=== PATIENT | male | born 1965 | race Caucasian/White ===

== ENCOUNTER 2020-11-04 16:25 | Emergency (ER) | payer SELFPAY ==
[~2020-11-04] VITALS: Ht 172.7 cm; Wt 80.3 kg
[2020-11-04 16:44] VITALS: BP 136/74
--- NOTE | 2020-11-04 16:48 | NUR ---
PT SENT TO LOBBY
[2020-11-04 17:47] LABS: BASOPHILS # (AUTO) 0.1 K/uL (0.00-0.22); BASOPHILS % (AUTO) 0.7 % (0.0-2.0); EOSINOPHILS # (AUTO) 0.5 K/uL (0-0.4); EOSINOPHILS % (AUTO) 5.9 % (0.0-4.0); HEMATOCRIT 44.1 % (36-52); HEMOGLOBIN 14.8 g/dL (12.0-18.0); LYMPHOCYTES # (AUTO) 3.1 K/uL (2.0-11.5); LYMPHOCYTES % (AUTO) 38.8 % (20.5-51.1); MEAN CORPUSCULAR HEMOGLOBIN 31 pg (27-31); MEAN CORPUSCULAR HGB CONC 34 g/dL (33-37); MEAN CORPUSCULAR VOLUME 92.7 fL (80-94); MONOCYTES # (AUTO) 0.6 K/uL (0.8-1.0); MONOCYTES % (AUTO) 7.4 % (1.7-9.3); NEUTROPHILS # (AUTO) 3.8 K/uL (1.8-7.7); NEUTROPHILS % (AUTO) 47.2 % (42.2-75.2); PLATELET COUNT (AUTO) 93 K/uL (140-450); RED BLOOD CELL COUNT(AUTO) 4.76 MIL/uL (4.20-6.10); RED CELL DISTRIBUTION WIDTH 13.5 % (11.6-13.7); WHITE BLOOD COUNT (AUTO) 8.1 K/uL (4.8-10.8)
[2020-11-04 18:08] LABS: ALBUMIN 4.2 g/dL (3.4-5.0); ANION GAP 10.5 (8-16); CARBON DIOXIDE 27.6 mmol/L (21-32); CREATININE 1.2 mg/dL (0.6-1.3); POTASSIUM 4.1 mmol/L (3.5-5.1); TOTAL BILIRUBIN 0.9 mg/dL (0.0-1.0)
--- NOTE | 2020-11-04 18:17 | NUR ---
PT AMBULATED TO CHAIR C
--- NOTE | 2020-11-04 18:25 | NUR ---
54 Y/O MALE BIB SELF WITH C/O LEFT FLANK PAIN SINCE THIS MORNING. REPORTS DYSURIA, FREQUENCY AND HEMATURIA TODAY. REPORTS TAKING NAPROSYN THIS MORNING WITH NO RELIEF. DENIES CP, SOB, FEVER OR CHILLS. DENIES N/V. PT A/O X4 WITH EVEN AND UNLABORED RESPIRATIONS. MEDHX: DENIES ALLERGIES: DENIES
[2020-11-04] MEDS: NACL 0.9% 1,000 ML IV ONE (18:26)
[2020-11-04] MEDS ORDERED: MORPHINE SULFATE 4 MG/ML SYR ONE (18:27)
[2020-11-04] MEDS: MORPHINE SULFATE 4 MG/ML SYR IVP ONE ×2 (18:33→19:37)
[2020-11-04 19:03] LABS: APPEARANCE,URINE CLOUDY (CLEAR); BILIRUBIN,URINE 1+ (NEGATIVE); BLOOD, URINE 3+ (NEGATIVE); COLOR,URINE AMBER (YELLOW); LEUKOCYTE ESTERASE ,URINE NEGATIVE (NEGATIVE); NITRITE, URINE NEGATIVE (NEGATIVE); PH,URINE 5.5 (5.0-9.0); UGLUCOSE NEGATIVE (NEGATIVE)
--- NOTE | 2020-11-04 19:05 | NUR ---
PT C/O 12/01 PAIN AND REPORTS NO RELIEF FROM PAIN MEDS. DR FREEMAN MADE AWARE
--- NOTE | 2020-11-04 19:39 | NUR ---
REPORT GIVEN TO BRANDON PORRAS, TRANSFER OF CARE AT THIS TIME
--- NOTE | 2020-11-04 19:40 | NUR ---
HANDOFF RECEIVED FROM VERN MCCLELLAN . ASSUMED CARE. PT SEATED UPRIGHT. ALL NEEDS MET AT THIS TIME. WILL CONTINUE TO MONITOR.
[2020-11-04 19:57] LABS: RBC,URINE 80-100 /HPF (0-5); WBC,URINE 0-5 /HPF (0-5)
--- NOTE | 2020-11-04 20:30 | NUR ---
PT REPORTS 0/10 PAIN AT THIS TIME. WILL CONTINUE TO MONITOR.
[2020-11-04] MEDS ORDERED: ONDA-24 PO (21:16)
[2020-11-04] MEDS ORDERED: ACET-9527 PO (21:16)
--- NOTE | 2020-11-04 21:30 | NUR ---
Patient discharged with v/s stable. Written and verbal after care instructions given and explained. Patient alert, oriented and verbalized understanding of instructions. Ambulatory with steady gait. All questions addressed prior to discharge. ID band removed. Patient advised to follow up with PMD. Rx of NORCO 5-325 AND ZOFRAN given. Patient educated on indication of medication including possible reaction and side effects. EDUCATED ON USE OF NARCOTICS, ADVISED TO AVOID DRINKING OR DRIVING WHILE USING. Opportunity to ask questions provided and answered.
[2020-11-04 21:31] VITALS: BP 140/72
== END 2020-11-04 21:30 | disposition home or self-care (01) ==
LOC: MED 16:25
DX: N13.4 Hydroureter (principal); D69.6 Thrombocytopenia, unspecified; R31.9 Hematuria, unspecified; K76.89 Other specified diseases of liver; Z94.9 Transplanted organ and tissue status, unspecified
CPT/HCPCS: 36415; 74176; 80053; 81001; 85025; 96361; 96374; 96376; 99284; J2270; J7030; 96375